=== PATIENT | female | born 1970 | race Native Hawaiian/Other Pacific Islander ===

== ENCOUNTER 2020-04-29 10:40 | Outpatient (CLI) | payer OTHER | END 2020-04-29 19:48 | disposition home or self-care (01) | LOC: MAMMO 10:40 | DX: Z12.31 Encounter for screening mammogram for malignant neoplasm of breast (principal); M54.12 Radiculopathy, cervical region ==

== ENCOUNTER 2020-06-03 13:43 | Outpatient (CLI) | payer OTHER | END 2020-06-03 22:15 | disposition home or self-care (01) | LOC: MRI 13:43 | DX: M54.17 Radiculopathy, lumbosacral region (principal); M54.12 Radiculopathy, cervical region ==

== ENCOUNTER 2020-07-10 23:25 | Emergency (ER) | payer OTHER ==
[~2020-07-10] VITALS: Ht 175.3 cm; Wt 120.7 kg
[2020-07-11 00:14] LABS: PLATELET COUNT 175 K/uL (152-353)
[2020-07-11 00:30] LABS: POTASSIUM 4.6 mmol/L (3.6-5.2)
[2020-07-11 01:40] VITALS: BP 141/80; TEMP 98.2
== END 2020-07-11 01:40 | disposition home or self-care (01) ==
LOC: ED 23:25
PROVIDERS: Family Medicine
DX: N30.81 Other cystitis with hematuria (principal); E11.65 Type 2 diabetes mellitus with hyperglycemia; M54.5 Low back pain
CPT/HCPCS: 36415; 80053; 81000; 85027; 96374; 96375; 99284; J1815; J1885

== ENCOUNTER 2020-10-14 11:10 | Outpatient (CLI) | payer OTHER | END 2020-10-14 21:53 | disposition home or self-care (01) | LOC: RAD 11:10 | PROVIDERS: ATTEND Registered Nurse | DX: M25.561 Pain in right knee (principal) ==

== ENCOUNTER 2021-02-17 14:45 | Outpatient (CLI) | payer OTHER | END 2021-02-17 23:00 | disposition home or self-care (01) | LOC: RAD 14:45 | PROVIDERS: ATTEND Registered Nurse | DX: M54.16 Radiculopathy, lumbar region (principal) ==

== ENCOUNTER 2021-07-01 15:36 | Emergency (ER) | payer OTHER ==
[~2021-07-01] VITALS: Ht 175.3 cm; Wt 122.5 kg
[2021-07-01 15:40] VITALS: TEMP 98.5
[2021-07-01 16:37] LABS: PLATELET COUNT 122 K/uL (152-353)
[2021-07-01 16:44] LABS: POTASSIUM 4.3 mmol/L (3.6-5.2)
[2021-07-01 17:41] VITALS: BP 133/76
== END 2021-07-01 17:41 | disposition home or self-care (01) ==
LOC: ED 15:36
PROVIDERS: Emergency Medicine
DX: E11.65 Type 2 diabetes mellitus with hyperglycemia (principal); Z79.4 Long term (current) use of insulin; U07.1 COVID-19; I10 Essential (primary) hypertension; J45.909 Unspecified asthma, uncomplicated; E66.8 Other obesity
CPT/HCPCS: 36600; 80048; 82805; 84484; 85027; 93005; 99283

== ENCOUNTER 2022-03-15 14:03 | Outpatient (CLI) | payer OTHER | END 2022-03-15 21:09 | disposition home or self-care (01) | LOC: RAD 14:03 | PROVIDERS: ATTEND Nurse Practitioner Family | DX: M79.672 Pain in left foot (principal) ==

== ENCOUNTER 2022-07-18 12:51 | Emergency (ER) | payer OTHER ==
[~2022-07-18] VITALS: Ht 175.3 cm; Wt 122.0 kg
[2022-07-18 12:58] VITALS: BP 154/84; TEMP 97.9
== END 2022-07-18 14:59 | disposition home or self-care (01) ==
LOC: ED 12:51
DX: S39.012A Strain of muscle, fascia and tendon of lower back, initial encounter (principal); W18.49XA Other slipping, tripping and stumbling without falling, initial encounter; Y92.89 Other specified places as the place of occurrence of the external cause
CPT/HCPCS: 96372; 99283; J2270; J2550